=== PATIENT | female | born 1980 | race Native Hawaiian/Other Pacific Islander ===

== ENCOUNTER 2022-05-30 19:15 | Emergency (ER) | payer OTHER ==
[~2022-05-30] VITALS: Ht 165.1 cm; Wt 86.2 kg
[2022-05-30 19:45] LABS: PLATELET COUNT 113 K/uL (152-353)
[2022-05-30 19:54] LABS: POTASSIUM 3.6 mmol/L (3.6-5.2)
[2022-05-31 07:37] VITALS: BP 134/86; TEMP 98
== END 2022-05-31 07:38 | disposition home or self-care (01) ==
LOC: ED 19:15
PROVIDERS: Emergency Medicine
DX: F10.129 Alcohol abuse with intoxication, unspecified (principal); Y90.8 Blood alcohol level of 240 mg/100 ml or more; Z65.9 Problem related to unspecified psychosocial circumstances
CPT/HCPCS: 36415; 80053; 80320; 83880; 84484; 85027; 85379; 93005; 96365; 99284; J3411; J3475; J3490